=== PATIENT | male | born 1990 | race Caucasian/White ===

== ENCOUNTER 2018-03-09 17:34 | Emergency (ER) | payer SELFPAY ==
[~2018-03-09] VITALS: Ht 165.1 cm; Wt 72.0 kg
[2018-03-09 17:54] VITALS: BP 131/84
== END 2018-03-10 02:30 | disposition left against medical advice (07) ==
LOC: ER 17:34
DX: Z53.21 Procedure and treatment not carried out due to patient leaving prior to being seen by health care provider (principal)